=== PATIENT | male | born 1970 | race Caucasian/White ===

== ENCOUNTER 2025-01-03 13:24 | Emergency (ER) | payer OTHER, SELFPAY ==
[2025-01-03 13:29] VITALS: BP 150/82; PULSE 79; RESP 18; TEMP 37.1; O2SAT 97
--- NOTE | 2025-01-03 13:38 | ED_ITS ---
HPI - General Adult General Chief complaint: Unspecified Stated complaint: Bee Sting/Right Eye/Toe Skin Sore Time Seen by Provider: 01/03/25 13:38 Source: patient Mode of arrival: ambulatory Limitations: no limitations History of Present Illness HPI narrative: 54 yo M presents with swelling to R eye. Was stung by bee yesterday while doing yard work. Also has infection to L great toe for unknown amount of time. No hx of DM. All systems reviewed and negative except as noted above. Related Data Home Medications ?Medication ?Instructions ?Recorded ?Confirmed ?Last Taken ?Type amlodipine 10 mg tablet mg 01/03/25 Unknown History dicyclomine 10 mg capsule mg 01/03/25 Unknown History montelukast 10 mg tablet mg 01/03/25 Unknown History Allergies Allergy/AdvReac Type Severity Reaction Status Date / Time No Known Allergies Allergy Verified 01/03/25 13:27 PMFSH Comments At time of signature, agree with nursing past medical, surgical, social and family history. There is no relevant family history pertinent to the presenting complaint. Exam Narrative: GENERAL: This is a well-nourished, well-developed patient, in no apparent distr ess. HEAD: normocephalic, atraumatic. EYES: PERRL. Sclera clear/white. No drainage. Vision is grossly intact. mild soft tissue swelling surround R eye EARS: External ears normal NOSE: External nose normal NECK: Neck supple, non-tender without lymphadenopathy, masses or thyromegaly. CARDIOVASCULAR: Regular rate and rhythm without murmurs, gallops, or rubs. RESPIRATORY: Clear to auscultation. Breath sounds equal bilaterally. No wheezes, rales, or rhonchi. SKIN: warm, Dry, intact with no suspicious lesions or rash, good texture and turgor. Erythema, swelling purulent drainage from lateral aspect of left great toe. Unable to evaluate for ingrown toenail. NEURO: awake, alert, and oriented to person, place and time. There were no obvious focal neurologic abnormalities. EXTREMITIES: No joint tenderness, effusion, or edema noted. Course Course Level of Care: Express Care Visit Vital Signs Vital signs: Vital Signs Temperature 37.1 C 01/03/25 13:29 Pulse Rate 79 01/03/25 13:29 Respiratory Rate 18 01/03/25 13:29 Blood Pressure 150/82 H 01/03/25 13:29 Pulse Oximetry 97 01/03/25 13:29 Oxygen Delivery Room Air 01/03/25 13:29 Temperature 37.1 C 01/03/25 13:29 Pulse Rate 79 01/03/25 13:29 Respiratory Rate 18 01/03/25 13:29 Blood Pressure 150/82 H 01/03/25 13:29 Pulse Oximetry 97 01/03/25 13:29 Oxygen Delivery Room Air 01/03/25 13:29 Reviewed Medical Decision Making MDM Narrative Medical decision making narrative: recommend Zyrtec and Medrol Dosepak for bee sting. Will treat left toe infection with cephalexin. Patient is well-appearing, nontoxic. No history of diabetes. Recommend follow-up with Podiatry of left toe infection is not improving. Vital Signs Vital Signs: Vital Signs Temperature 37.1 C 01/03/25 13:29 Pulse Rate 79 01/03/25 13:29 Respiratory Rate 18 01/03/25 13:29 Blood Pressure 150/82 H 01/03/25 13:29 Pulse Oximetry 97 01/03/25 13:29 Oxygen Delivery Room Air 01/03/25 13:29 Temperature 37.1 C 01/03/25 13:29 Pulse Rate 79 01/03/25 13:29 Respiratory Rate 18 01/03/25 13:29 Blood Pressure 150/82 H 01/03/25 13:29 Pulse Oximetry 97 01/03/25 13:29 Oxygen Delivery Room Air 01/03/25 13:29 Discharge Plan Discharge Clinical Impression: Infection of toe, Accidental bee sting Patient Disposition: Home Condition: Stable Instructions: Insect Bite or Sting (ED) Additional Instructions: Take antibiotic as prescribed until gone. Take Tylenol every 6-8 hours as needed for pain. Start Medrol Dosepak today. Take [id number] Zyrtec as needed for itching. Follow-up with surveillance director if infection to left great toe is not improving. Patient Language: Welsh Prescriptions: New cephalexin 500 mg capsule 500 mg PO QID 7 Days Qty: 28 0RF methylprednisolone [Medrol (Fernando)] 4 mg tablets,dose pack See Rx Instructions PO .COMPLEX Qty: 21 0RF Rx Instructions: orally per package directions No Action amlodipine 10 mg tablet montelukast 10 mg tablet dicyclomine 10 mg capsule Follow-up/Referrals: Alejo,Leta Ponce APN [Primary Care Provider, Unknown] Time of Disposition: 13:46
--- OUTSIDE RECORDS SUMMARY | 2025-01-03 13:38 | XMS_ITS | Encounter Summary ---
Author Organization [facility] Address [address] [place] [address] Phone Care Team Providers Care Legal Document Specialist Name Role Phone Santos Carty MD Primary Care Provider [phone] Azam Cheung DPM Unavailable [phone] Encounter Details Date Type Department Care Team (Latest Contact Info) Description 04/29/2021 Transcribe Orders [facility] Patient Access Admitting [address] [place] [id number] Santos Carty MD [address] [place] [address] Hyperlipidemia, unspecified hyperlipidemia type (Primary Dx); Viral syndrome Social History Tobacco Use Types Packs/Day Years Used Date Smoking Tobacco: Never Smokeless Tobacco: Never Alcohol Use Standard Drinks/Week Comments No 0 (1 standard drink = 0.6 oz pur e alcohol) Sex and Gender Information Value Date Recorded Sex Assigned at Not on file Legal Sex Male 10:31 PM CDT Gender Identity Not on file Sexual Orientation Not on file COVID-19 Exposure Response Date Recorded In the last month, have you been in contact with someone who was confirmed or suspected to have Coronavirus / COVID-19? No / Unsure 04/29/2021 8:43 AM LONG TERM CARE SOCIAL WORKER documented as of this encounter Plan of Treatment Scheduled Orders Name Type Priority Associated Diagnoses Orde r Schedule SARS-COV-2 BY MOLECULAR Microbiology Routine Viral syndrome Expected: 04/29/2021, Expires: 04/29/2022 COMPLETE BLOOD COUNT (CBC) WITH DIFF Lab Routine Hyperlipidemia, unspecified hyperlipidemia type Expected: 04/29/2021, Expires: 04/29/2022 CMP (COMPREHENSIVE METABOLIC PANEL) Lab Routine Hyperlipidemia, unspecified hyperlipidemia type Expected: 04/29/2021, Expires: 04/29/2022 LIPID PANEL Lab Routine Hyperlipidemia, unspecified hyperlipidemia type Expected: 04/29/2021, Expires: 04/29/2022 VITAMIN D, 25 HYDROXY TOTAL Lab Routine Hyperlipidemia, unspecified hyperlipidemia type Expected: 04/29/2021, Expires: 04/29/2022 URINALYSIS REFLEX IF INDICATED BY ABNORMAL RESULTS Lab Routine Hyperlipidemia, unspecified hyperlipidemia type Expected: 04/29/2021, Expires: 04/29/2022 THYROID STIMULATING HORMONE (TSH) Lab Routine Hyperlipidemia, unspecified hyperlipidemia type Expected: 04/29/2021, Expires: 04/29/2022 THYROXINE (T4) FREE Lab Routine Hyperlipidemia, unspecified hyperlipidemia type Expected: 04/29/2021, Expires: 04/29/2022 TRIIODOTHYRININE (T3) FREE Lab Routine Hyperlipidemia, unspecified hyperlipidemia type Expected: 04/29/2021, Expires: 04/29/2022 documented as of this encounter Visit Diagnoses Diagnosis Hyperlipidemia, unspecified hyperlipidemia type- Primary Viral syndrome Unspecified viral infection, in conditions classified elsewhere and of unspecified site documented in this encounter Additional Health Concerns Infection Onset Date Last Indicated Resolved Time COVID - 19 04/29/2021 04/29/2021 04/29/2021 9:53 AM LONG TERM CARE SOCIAL WORKER COVID - 19 Confirmed 04/29/2021 04/29/2021 022 12:16 AM LONG TERM CARE SOCIAL WORKER documented as of this encounter Care Teams Legal Document Specialist Relationship Specialty Start Date End Date Santos Carty MD [address] [place] [address] PCP - General Internal Medicine 08/10/15 Azam Cheung DPM [address] [place] [address] Podiatry 11/23/15 documented as of this encounter
--- OUTSIDE RECORDS SUMMARY | 2025-01-03 13:38 | XMS_ITS | Clinical Summary ---
Author Organization [facility] Address [address] [place] [address] Phone Care Team Providers Care Knife Changer Name Role Phone Santos Carty MD Primary Care Provider [phone] Azam Cheung DPM Unavailable [phone] Allergies No known active allergies Medications dicyclomine (BENTYL) 10 MG Capsule Take 10 mg by mouth 2 times daily. 6 Active loperamide (IMODIUM) 2 MG Capsule Take 2 mg by mouth 2 times daily. 6 Active glucosamine-cho ndroitin 500-400 MG Capsule Take 1 Cap by mouth 2 times daily. Active montelukast (SINGULAIR) 10 MG Tablet 7 Active traMADol (ULTRAM) 50 MG Tablet tramadol 50 mg tablet Active Meloxicam 15 MG Tablet Take 1 Tab by mouth daily. 1 8 Active Naltrexone-buPR OPion HCl ER (CONTRAVE) 8-90 MG TABLET SR 12 HR Contrave 8 mg-90 mg tablet,extended release Active naproxen (NAPROSYN) 500 MG Tablet TAKE 1 TABLET(S) TWICE A DAY BY ORAL ROUTE WITH MEALS. 0 9 Active Fexofenadine-Ps eudoephedrine (SNOW-D 24 HOUR PO) Snow-D 24 Hour 180 mg-240 mg tablet,extended release Active fluticasone (FLONASE) 50 MCG/ACT SuspensionIndic ations:PNAR (perennial non-allergic rhinitis) 2 SPRAYS BY NASAL ROUTE DAILY. 2 SPRAYS IN EACH NOSTRIL DAILY 16 g 6 0 Active albuterol 108 (90 Base) MCG/ACT Aerosol Solution take 2 Puffs by inhalation every 6 hours as needed for Cough. 6.7 g 1 Active Active Problems Problem Noted Date Diagnosed Date ZAID (obstructive sleep apnea) 12/06/2016 Hypertrophy of nasal turbinates 12/06/2016 Nasal septal deviation 12/06/2016 Irritable bowel syndrome with diarrhea 7 Gastroesophageal reflux disease with esophagitis 12/06/2016 Hiatal hernia 12/06/2016 Duodenal diverticulum 12/06/2016 Fatty liver 12/06/2016 Scoliosis of thoracolumbar spine 12/06/2016 Organic brain syndrome 12/06/2016 Intellectual disability 12/06/2016 Other mononeuritis of lower limb(355.79) 016 Pain in left foot 11/23/2015 Immunizations Immunization Administration Dates Next Due TD VACCINE 05/01/2008 Social History Tobacco Use Types Packs/Day Years Used Date Smoking Tobacco: Never Smokeless Tobacco: Never Tobacco Cessation:Counseling Given: Yes Alcohol Use Standard Drinks/Week Comments No 0 (1 standard drink = 0.6 oz pur e alcohol) Sex and Gender Information Value Date Recorded Sex Assigned at Not on file Legal Sex Male 10:31 PM CDT Gender Identity Not on file Sexual Orientation Not on file Last Filed Vital Signs Vital Sign Reading Time Taken Comments Blood Pressure 124/82 04/29/2021 10:11 AM CORE SHAPER TOP Pulse 93 04/29/2021 10:11 AM CORE SHAPER TOP Temperature 35.8 C (96.4 F) 04/29/2021 8:42 AM CORE SHAPER TOP Respiratory Rate 18 04/29/2021 10:11 AM CORE SHAPER TOP Oxygen Saturation 96% 04/29/2021 10:11 AM CORE SHAPER TOP Inhaled Oxygen Concentration - - Weight 122.5 kg (270 lb) 04/29/2021 8:42 AM CORE SHAPER TOP Height 172.7 cm (5' 8) 04/29/2021 8:42 AM CORE SHAPER TOP Body Mass Index 41.05 04/29/2021 8:42 AM CORE SHAPER TOP Plan of Treatment Health Maintenance Due Date Last Done Comments Hepatitis C Virus (HCV) Screening 1969 Hepatitis B Immunization (1 of 3 - 19+ 3-dose series) 1988 Cologuard 2014 Colonoscopy 2014 Colorectal Cancer Screening 2014 Immunochemical Fecal Occult Blood 2014 Pneumococcal Immunization (50+ years) (1 of 1 - PCV) 09/12/2019 Zoster Immunization (1 of 2) 09/12/2019 Influenza Immunization (#1) 2024 10/0 05/2020, 02/23/2020, 03/18/2019, Additional history exists SARS-COV-2 Immunization ( season) 2024 05/12/2021, 08/13/2020, 07/16/2020 Respiratory Syncytial Virus (RSV) Immunization (Adult) (1 - 1-dose 75+ series) 2044 TdaP Immunization Completed 02/20/2018 Human Papillomavirus (HPV) Immunization Aged Out No longer eligible based on patient's age to complete this topic Meningococcal Immunization (ACWY) Aged Out No longer eligible based on patient's age to complete this topic Rotavirus Immunization Aged Out No lo nger eligible based on patient's age to complete this topic Insurance MEDICAID [employer] Advance Directives Documents on File Type Date Recorded Patient Field Project Manager Expl anation Power of Instrumentation Fitter for Health Care 08/31/2018 12:35 PM POA-HC Care Teams Knife Changer Relationship Specialty Start Date End Date Santos Carty MD [address] [place] [address] PCP - General Internal Medicine 08/10/15 Azam Cheung DPM [address] [place] [address] Podiatry 11/23/15
--- OUTSIDE RECORDS SUMMARY | 2025-01-03 13:38 | XMS_ITS | Encounter Summary ---
Author Organization [facility] Address [address] [place] [address] Care Team Providers Care Nuclear Pharmacist Name Role Phone Santos Carty MD Primary Care Provider [phone] Reason for Visit * Reason Comments Refill Request Encounter Details Date Type Department Care Team (Late st Contact Info) Description 10/02/2018 Refill [facility] - Orthopedics [address] [place] [phone] Hazel Godfrey MD [address] [place] [phone] Refill Request Social History Tobacco Use Types Packs/Day Years Used Date Smoking Tobacco: Never Smokeless Tobacco: Never Sex and Gender Information Value Date Recorded Sex Assigned at Not on file Legal Sex Male 1:14 PM CDT Gender Identity Not on file Sexual Orientation Not on file documented as of this encounter Plan of Treatment Not on file documented as of this encounter Visit Diagnoses Not on filedocumented in this encounter Care Teams Nuclear Pharmacist Relationship Specialty Start Date End Date Santos Carty MD [address] [place] [address] PCP - General 08/17/18 documented as of this encounter
--- OUTSIDE RECORDS SUMMARY | 2025-01-03 13:38 | XMS_ITS | Encounter Summary ---
Author Organization [facility] Address [address] [place] [address] Phone Care Team Providers Care Panel Wirer Name Role Phone Santos Carty MD Primary Care Provider [phone] Azam Cheung DPM Unavailable [phone] Reason for Visit * Reason Comments Medication Refill Encounter Details Date Type Department Care Team (Late st Contact Info) Description 02/28/2020 Refill [facility] - [facility] - [place] [address] [phone] Ladi Feliciano PAC Medication Refill Social History Tobacco Use Types Packs/Day Years [...] as of this encounter Visit Diagnoses Diagnosis PNAR (perennial non-allergic rhinitis) Chronic rhinitis documented in this encounter Additional Health Concerns Infection Onset Date Last Indicated Resolved Time COVID - 19 04/29/2021 04/29/2021 04/29/2021 9:53 AM GASKET FORMER COVID - 19 Confirmed 04/29/2021 04/29/2021 022 12:16 AM GASKET FORMER documented as of this encounter Care Teams Panel Wirer Relationship Specialty Start Date End Date Santos Carty MD [address] [place] [address] PCP - General Internal Medicine 08/10/15 Azam Cheung DPM [address] [place] [address] Podiatry 11/23/15 documented as of this encounter
--- OUTSIDE RECORDS SUMMARY | 2025-01-03 13:38 | XMS_ITS | Clinical Summary ---
Author Organization [facility] Address [address] [place] [address] Care Team Providers Care High School Vice Principal Name Role Phone Santos Carty MD Primary Care Provider [phone] Source Comments [facility],non-owned Affiliates and Associated Physician Practices is amultiple site organization consisting of ambulatory clinics and hospital sitesin [place], [place], [place] and [place]. This disclosure is being madepursuant to the Care Everywhere program and may not contain all information available regarding this patient. Last updated 18.[facility] Allergies No known active allergies Medications * Be aware that medications may not be up to date on this document. Alwaysverify current medications with the patient. dicyclomine (BENTYL) 10 MG capsule dicyclomine 10 mg capsule Active fluticasone propionate (FLONASE) 50 MCG/ACT nasal spray fluticasone propionate 50 mcg/actuation nasal spray,suspension Active glucosamine-cho ndroitin 500-400 MG capsule Take 1 capsule by mouth 2 times daily Active loperamide (IMODIUM) 2 MG capsule loperamide 2 mg capsule Active loratadine (CLARITIN) 10 MG tablet 9 Active tiZANidine HCl 4 MG take twice a day by oral route Active montelukast (SINGULAIR) 10 MG tablet montelukast 10 mg tablet Active CPAP Use as directed Acti ve naproxen (NAPROSYN) 500 MG tabletIndicatio ns:Recurrent pain of right knee,Arthritis of right knee Take 1 tablet by mouth 2 times daily 60 tablet 9 Active Active Problems Problem Noted Date Diagnosed Date Leg length discrepancy Social History Tobacco Use Types Packs/Day Years Used Date Smoking Tobacco: Never Smokeless Tobacco: Never Sex and Gender Information Value Date Recorded Sex Assigned at Not on file Legal Sex Male 1:14 PM CDT Gender Identity Not on file Sexual Orientation Not on file Last Filed Vital Signs Vital Sign Reading Time Taken Comments Blood Pressure 125/81 08/30/2018 1:17 PM CDT Pulse 87 08/30/2018 1:17 PM CDT Temperature 36.6 C (97.9 F) 08/30/2018 1:17 PM CDT Respiratory Rate 18 08/30/2018 1:17 PM CDT Oxygen Saturation 99% 08/30/2018 1:17 PM CDT Inhaled Oxygen Concentration - - Weight 117.9 kg (260 lb) 09/27/2018 12:22 PM CDT Height 175.3 cm (5' 9) 09/27/2018 12:22 PM CDT Body Mass Index 38.4 09/27/2018 12:22 PM CDT Plan of Treatment Health Maintenance Due Date Last Done Comments COLOGUARD (AGES 45-75) - COLON CA SCREENING 1969 COLON MONITORING 1969 COLONOSCOPY - COLON CA SCREENING 1969 CT COLONOGRAPHY - COLON CA SCREENING 1969 Colorectal Cancer Screening 1969 FIT - COLON CA SCREENING 1969 FLEX SIG - COLON CA SCREENING 1969 LIPID TESTING 1969 HIV SCREENING 1984 HEPATITIS C SCREENING 09/07/1987 DTAP/TDAP/TD VACCINES (1 - Tdap) 1988 HEPATITIS B VACCINE (1 of 3 - 19+ 3-dose series) 1988 SCREENING FOR DIABETES 09/27/2018 PNEUMOCOCCAL VACCINE 50+ (1 of 1 - PCV) 09/12/2019 ZOSTER VACCINE (1 of 2) 09/12/2019 COVID-19 VACCINE (1 - 2023- season) 2023 DEPRESSION SCREENING 05/01/2024 INFLUENZA VACCINE (#1) 2024 8, 02/09/2017, 02/12/2016, Additional history exists HIB VACCINE Aged Out No longer eligi ble based on patient's age to complete this topic HPV VACCINE Aged Out No longer eligi ble based on patient's age to complete this topic MENINGOCOCCAL (Group B) VACCINE SHARED DECISION-MAKING Aged Out No longer eligible based on patient's age to complete this topic MENINGOCOCCAL GROUPS A/C/Y/W VACCINE Aged Out No longer eligible based on patient's age to complete this topic Insurance [facility] Care Teams High School Vice Principal Relationship Specialty Start Date End Date Santos Carty MD [address] [place] [address] PCP - General 08/17/18
--- OUTSIDE RECORDS SUMMARY | 2025-01-03 13:38 | XMS_ITS | Clinical Summary ---
Author Organization [facility] Address [address] [place] [address] Care Team Providers Care Boat Dock Operator Name Role Phone Santos Carty MD Primary Care Provider [phone] Allergies No known active allergies Medications loratadine (CLARITIN) 10 mg tablet 12/10/19 20 Active dicyclomine (BENTYL) 10 mg capsule Take 1 capsule (10 mg total) by mouth 4 (four) times a day before meals and nightly Active montelukast (SINGULAIR) 10 mg tablet Take 1 tablet (10 mg total) by mouth nightly Active loperamide (IMODIUM) 2 mg capsule Take 1 capsule (2 mg total) by mouth 4 (four) times a day as needed for diarrhea Active glucosam-pedro- clv2-R-niuf-dev sw 750 mg-644 mg- 30 mg-1 mg tablet Take by mouth Active naproxen (NAPROSYN) 500 mg tablet Active meloxicam (MOBIC) 15 mg tablet Take 1 tablet (15 mg total) by mouth daily 03/01/20 18 Active albuterol HFA (PROVENTIL HFA,VENTOLIN HFA,PROAIR HFA) 90 mcg/actuation inhaler Inhale 2 puffs every 6 (six) hours as needed 04/29/20 21 Active losartan (COZAAR) 100 mg tablet 05/06/19 23 Active amLODIPine (NORVASC) 10 mg tablet Take 1 tablet (10 mg total) by mouth daily 11/15/19 23 Active fluticasone propionate (FLONASE) 50 mcg/actuation nasal spray ADMINISTER ONE (1) SPRAY INTO EACH NOSTRIL DAILY 16 g 12/10/19 25 Active fluticasone propionate (FLONASE) 50 mcg/actuation nasal spray ADMINISTER ONE (1) SPRAY INTO EACH NOSTRIL DAILY 16 g 11/09/19 25 025 Discontinued Active Problems No known active problems Medical History Medical History Date Comments Seizures (HCC) Scoliosis GERD (gastroesophageal reflux disease) Sleep apnea IBS (irritable bowel syndrome) Fatty liver Duodenal diverticulum Encephalopathy MR (mitral regurgitation) Social History Tobacco Use Types Packs/Day Years Used Date Smoking Tobacco: Never Tobacco Cessation:Counseling Given: Not Answered Alcohol Use Standard Drinks/Week Comments Not Currently 0 (1 standard drink = 0.6 oz pur e alcohol) Personal Safety Answer Date Recorded Getting School Help Needed Not on file 05/15 Sex and Gender Information Value Date Recorded Sex Assigned at Not on file Legal Sex Male 6:12 PM THERMOSTAT MACHINE TENDER Gender Identity Not on file Sexual Orientation Not on file Obstetrics History Last Filed Vital Signs Vital Sign Reading Time Taken Comments Blood Pressure 157/85 01/05/2024 9:34 AM CDT Pulse 75 01/05/2024 9:34 AM CDT Temperature 36.1 C (96.9 F) 04/24/2020 6:53 AM THERMOSTAT MACHINE TENDER Respiratory Rate 18 07/26/2021 8:10 AM CDT Oxygen Saturation 93% 01/05/2024 9:34 AM CDT Inhaled Oxygen Concentration - - Weight 120.2 kg (265 lb) 01/05/2024 9:34 AM CDT Height 170.2 cm (5' 7) 01/05/2024 9:34 AM CDT Body Mass Index 41.5 01/05/2024 9:34 AM CDT Plan of Treatment Health Maintenance Due Date Last Done Comments Colon Cancer Screening-Colonoscopy 1969 Depression Screening 1969 Hepatitis C Screening 1969 Prostate Cancer Screening-PSA 1969 Hepatitis B Screening 09/12/1987 Regular Well Visit/Exam 18-64 09/12/1987 Zoster Vaccine (1 of 2) 09/12/2019 Covid-19 Vaccine ( season) 2023 05/12/2021, 08/13/2020, 07/16/2020 Influenza Vaccine (#1) 2024 3, 03/05/2022, 01/29/2021, Additional history exists DTaP/Tdap/Td Vaccine (2 - Td or Tdap) 02/21/2028 02/20/2018, 05/01/2008 Pneumococcal vaccine <65 Aged Out No longer eligible based on patient's age to complete this topic Insurance [id number] [place] [address] Care Teams Boat Dock Operator Relationship Specialty Start Date End Date Santos Carty MD [address] [address] [place] [id number] PCP - General Internal Medicine 01/02/20
== END 2025-01-03 13:57 | disposition home or self-care (01) ==
PROVIDERS: Emergency Provider Nurse Practitioner Family; PCP Nurse Practitioner Family
DX: L08.9 Local infection of the skin and subcutaneous tissue, unspecified (principal); T63.441A Toxic effect of venom of bees, accidental (unintentional), initial encounter; I10 Essential (primary) hypertension
CPT/HCPCS: 99203; G0463